=== PATIENT | female | born 1990 | race African-American/Black ===

== ENCOUNTER 2017-01-25 20:23 | Emergency (ER) | payer SELFPAY ==
[~2017-01-25] VITALS: Ht 157.5 cm; Wt 65.3 kg
[2017-01-25 20:26] VITALS: BP 109/68; PULSE 94; RESP 16; TEMP 98.6; O2SAT 100
--- NOTE | 2017-01-25 20:42 | PD ---
HPI Chief Complaint: Packer [employer] Carry Out Problem/Complaint Time Seen by Provider: 20:32 Travel History International Travel<30 days: No Contact w/Intl Traveler<30days: No Traveled to known affect area: No History of Present Illness HPI 26-year-old female complains of epigastric upper abdominal pain. Patient status post elective 2 weeks ago. Patient states that she stopped bleeding 1 week after the procedure. Patient started having low abdominal cramping for the past 3 days. Patient states the pain cramping pain localized to lower abdomen. Patient denies any pain radiation. Patient states that the pain has been intermittent. Patient states has been taking Naprosyn for pain. Patient denies any dysuria or frequency. Patient denies any vaginal discharge or bleeding. Patient denies any fever chills. Patient denies any back pain. Patient states that she has not been sexually active since the . PFSH Past Medical History ?: Unknown Social History Tobacco Use: No Allergies-Medications (Allergen,Severity, Reaction): Coded Allergies: No Known Allergies (Unverified , 01/25/17) Reported Meds & Prescriptions Reported Meds & Active Scripts Active Carafate (Sucralfate) 1 Gram Tab 1 Gm PO QID On empty stomach Protonix (Pantoprazole Sodium) 40 Mg Tab 40 Mg PO DAILY Flagyl (Metronidazole) 500 Mg Tab 2,000 Mg PO ONCE Reported Naproxen 500 Mg Tab 500 Mg PO BID Sprintec 28 (Norgestimate-Ethinyl Estradiol) 0.25-35 mg-Mcg Tab 1 Tab PO DAILY Review of Systems General / Constitutional: No: Fever Eyes: No: Visual changes HENT: No: Headaches Cardiovascular: No: Chest Pain or Discomfort Respiratory: No: Shortness of Breath Gastrointestinal: Positive: Abdominal Pain Genitourinary: No: Dysuria Musculoskeletal: No: Pain Skin: No Rash Neurologic: No: Weakness Psychiatric: No: Depression Endocrine: No: Polydipsia Hematologic/Lymphatic: No: Easy Bruising Physical Exam Narrative GENERAL: Well-nourished, well-developed patient. SKIN: Focused skin assessment warm/dry. HEAD: Normocephalic. EYES: No scleral icterus. No injection or drainage. NECK: Supple, trachea midline. No JVD or lymphadenopathy. CARDIOVASCULAR: Regular rate and rhythm without murmurs, gallops, or rubs. RESPIRATORY: Breath sounds equal bilaterally. No accessory muscle use. GASTROINTESTINAL: Abdomen soft, nondistended. Patient has mild tenderness on palpation epigastric area. No rebound tenderness. No mass. MUSCULOSKELETAL: No cyanosis, or edema. BACK: Nontender without obvious deformity. No CVA tenderness. 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 No cervical motion tenderness. Uterus is nonenlarged and nontender on palpation. No adnexal mass or tenderness. Data Data Last Documented VS Vital Signs Date Time Temp Pulse Resp B/P (MAP) Pulse Ox O2 Delivery O2 Flow Rate FiO2 01/25/17 22:26 84 16 110/68 (82) 100 01/25/17 20:26 98.6 Orders Orders Beta Hcg (Quant/Titer) (01/25/17 20:34) Complete Blood Count With Diff (01/25/17 20:34) Comprehensive Metabolic Panel (01/25/17 20:34) Gc And Chlamydia Pcr (01/25/17 20:34) Wet Prep Profile (01/25/17 20:34) Urinalysis - C+S If Indicated (01/25/17 20:34) Iv Access Insert/Monitor (01/25/17 20:34) Ed Urine Pregnancytest Poc (01/25/17 20:34) Al-Mag Hy-Si 40-40-4 Mg/Ml Liq (Mag-Al P (01/25/17 21:00) Pantoprazole (Protonix) (01/25/17 21:00) Hurhw-Flvewb-Bkhgff-Pb Liq ( Liq (01/25/17 21:00) Urine Culture (01/25/17 20:55) Ed Discharge Order (01/25/17 22:10) Labs Laboratory Tests Test 01/25/17 20:55 White Blood Count 10.7 TH/MM3 Red Blood Count 4.08 MIL/MM3 Hemoglobin 12.0 GM/DL Hematocrit 35.6 % Mean Corpuscular Volume 87.4 FL Mean Corpuscular Hemoglobin 29.5 PG Mean Corpuscular Hemoglobin Concent 33.8 % Red Cell Distribution Width 12.7 % Platelet Count 141 TH/MM3 Mean Platelet Volume 9.7 FL Neutrophils (%) (Auto) 79.3 % Lymphocytes (%) (Auto) 10.0 % Monocytes (%) (Auto) 6.9 % Eosinophils (%) (Auto) 0.9 % Basophils (%) (Auto) 2.9 % Neutrophils # (Auto) 8.5 TH/MM3 Lymphocytes # (Auto) 1.1 TH/MM3 Monocytes # (Auto) 0.7 TH/MM3 Eosinophils # (Auto) 0.1 TH/MM3 Basophils # (Auto) 0.3 TH/MM3 CBC Comment DIFF FINAL Differential Comment Urine Color SCOTT Urine Turbidity CLOUDY Urine pH 6.0 Urine Specific [place] 1.033 Urine Protein 30 mg/dL Urine Glucose (UA) NEG mg/dL Urine Ketones 15 mg/dL Urine Occult Blood TRACE Urine Nitrite NEG Urine Bilirubin NEG Urine Leukocyte Esterase MOD Urine RBC 3-5 /hpf Urine WBC 100-200 /hpf Urine Squamous Epithelial Cells 6-8 /hpf Urine Bacteria FEW /hpf Urine Trichomonas PRESENT Microscopic Urinalysis Comment CULTURE INDICATED Clue Cells (Wet Prep) NONE SEEN Vaginal Trichomonas (Wet Prep) PRESENT Vaginal Yeast (Wet Prep) NONE SEEN Blood Urea Nitrogen 10 MG/DL Creatinine 0.76 MG/DL Random Glucose 123 MG/DL Total Protein 7.6 GM/DL Albumin 3.4 GM/DL Calcium Level 8.1 MG/DL Alkaline Phosphatase 96 U/L Aspartate Amino Transf (AST/SGOT) 18 U/L Alanine Aminotransferase (ALT/SGPT) 22 U/L Total Bilirubin 0.5 MG/DL Sodium Level 136 MEQ/L Potassium Level 3.2 MEQ/L Chloride Level 104 MEQ/L Carbon Dioxide Level 25.3 MEQ/L Anion Gap 7 MEQ/L Estimat Glomerular Filtration Rate 112 ML/MIN Human Chorionic Gonadotropin, Quant 14 MIU/ML [facility] Medical Decision Making Medical Screen Exam Complete: Yes Emergency Medical Condition: Yes Interpretation(s) 22:04 PM. CBC within normal limit. Potassium 3.2. Beta hCG 14. UA positive for WBC and bacteria. Trichomonas positive. Differential Diagnosis Differential diagnosis including gastritis, PUD, pancreatitis, cholecystitis, colitis, UTI, pyelonephritis, nephrolithiasis, endometritis, retained products of conception. Narrative Course 26-year-old female epigastric abdominal cramping. Status post elective 2 weeks ago. Protonix 40 mg by mouth. Maalox 30 cc by mouth. 10 cc by mouth. Diagnosis Primary Impression: Gastritis Qualified Codes: K29.00 - Acute gastritis without bleeding Additional Impression: Trichomonas vaginitis Patient Instructions: General Instructions Additional Instructions: Take medication as directed. Follow-up with personal physician. Return if worse. Med/Other Pt SpecificInfo: Prescription(s) given Scripts Sucralfate (Carafate) 1 Gram Tab 1 GM PO QID for Ulcer Prevention, #120 TAB 0 Refills On empty stomach Prov: Bayron Gross MD 01/25/17 Pantoprazole (Protonix) 40 Mg Tab 40 MG PO DAILY for Reflux, #30 TAB 0 Refills Prov: Bayron Gross MD 01/25/17 Metronidazole (Flagyl) 500 Mg Tab 2000 MG PO ONCE for Infection, #4 TAB 0 Refills Prov: Bayron Gross MD 01/25/17 Disposition: 01 DISCHARGE HOME Condition: Stable Bayron Gross MD Jan 25, 2017 20:42
[2017-01-25] MEDS ORDERED: ALUMINUM/MAGNESIUM/SIMETH 30 ML CUP PO ONE (21:00)
[2017-01-25] MEDS ORDERED: ATROPINE/SCOPOLAM/HYOSCYAM/PB ELIXIR 10 ML CUP PO ONE (21:00)
[2017-01-25] MEDS ORDERED: PANTOPRAZOLE SOD 40 MG DELAYED RELEASE TAB PO ONE (21:00)
[2017-01-25 21:05] LABS: BLOOD, URINE TRACE (NEG); GLUCOSE,URINE NEG (NEG); KETONE, URINE 15 mg/dL (NEG); NITRITE,URINE NEG (NEG)
[2017-01-25] MEDS ORDERED: NAPR500T2 PO (21:05)
[2017-01-25] MEDS ORDERED: SPRI28TA PO (21:05)
[2017-01-25 21:06] LABS: AUTOMATED NEUTROPHIL # 8.5 TH/MM3 (1.8-7.7); BASOPHIL # 0.3 TH/MM3 (0-0.2); BASOPHIL % 2.9 % (0.0-2.0); EOSINOPHIL # 0.1 TH/MM3 (0-0.4); EOSINOPHIL % 0.9 % (0.0-4.0); HEMATOCRIT 35.6 % (35.0-46.0); HEMO FLAGS DIFF FINAL; LYMPHOCYTE # 1.1 TH/MM3 (1.0-4.8); MEAN CELL VOLUME 87.4 FL (80.0-100.0); MEAN CORPUSCULAR HEMOGLOBIN 29.5 PG (27.0-34.0); MEAN CORPUSCULAR HGB CONC 33.8 % (32.0-36.0); MONO % 6.9 % (0.0-8.0); NEUT % 79.3 % (16.0-70.0); PLATELET COUNT 141 TH/MM3 (150-450); RED BLOOD COUNT 4.08 MIL/MM3 (4.00-5.30); RED CELL DISTRIBUTION WIDTH 12.7 % (11.6-17.2); URINE COLOR AMBER (YELLW/STRAW); WHITE BLOOD COUNT 10.7 TH/MM3 (4.0-11.0)
[2017-01-25 21:10] LABS: BACTERIA, URINE FEW /hpf; COMMENT (UR) CULTURE INDICATED; CULTURE IF INDICATED CULTURE INDICATED; WBC, URINE 100-200 /hpf (0-5)
[2017-01-25 21:12] LABS: CHLORIDE 104 MEQ/L (98-107); POTASSIUM 3.2 MEQ/L (3.5-5.1); SODIUM (NA) 136 MEQ/L (136-145)
[2017-01-25 21:16] LABS: ANION GAP 7 MEQ/L (5-15); BICARBONATE 25.3 MEQ/L (21.0-32.0); BLOOD UREA NITROGEN 10 MG/DL (7-18)
[2017-01-25 21:19] LABS: ALT (GPT) 22 U/L (10-53); AST (GOT) 18 U/L (15-37); GLOMERULAR FILTRATION RATE 112 ML/MIN (>89)
[2017-01-25 21:20] LABS: TOTAL BILIRUBIN ADULT 0.5 MG/DL (0.2-1.0)
[2017-01-25 21:22] LABS: ALKALINE PHOSPHATASE 96 U/L (45-117)
[2017-01-25 21:24] LABS: BETA HCG QUANT 14 MIU/ML (0-5)
[2017-01-25] MEDS ORDERED: CARA1TAB6 PO (22:09)
[2017-01-25] MEDS ORDERED: METR-1 PO (22:09)
[2017-01-25] MEDS ORDERED: PROT40TA PO (22:09)
[2017-01-25 22:26] VITALS: BP 110/68
[2017-01-26 14:44] LABS: CHLAMYDIA PCR NOT DETECTED (NOT DETECT); NEISSERIA PCR NOT DETECTED (NOT DETECT)
== END 2017-01-25 22:28 | disposition home or self-care (01) ==
LOC: PHED 20:23
DX: K29.00 Acute gastritis without bleeding (principal); A59.01 Trichomonal vulvovaginitis; Z98.890 Other specified postprocedural states
CPT/HCPCS: 80053; 81001; 84702; 84703; 85025; 87086; 87210; 87491; 87591; 99284

== ENCOUNTER 2017-01-28 15:29 | Emergency (ER) | payer SELFPAY ==
[~2017-01-28 15:29] MED LIST: CARA1TAB6 PO; METR-1 PO; NAPR500T2 PO; PROT40TA PO; SPRI28TA PO
[2017-01-28 15:42] VITALS: BP 98/64; PULSE 95; RESP 20; TEMP 98.5; O2SAT 99
[2017-01-28] MEDS ORDERED: SODIUM CHLOR 0.9% 1000 ML INJ 1,000 ML IV SCH (16:20)
[2017-01-28] MEDS ORDERED: TOPA50TA7 PO (16:24)
--- NOTE | 2017-01-28 16:24 | PD ---
HPI Chief Complaint: Headache Time Seen by Provider: 16:16 Travel History International Travel<30 days: No Contact w/Intl Traveler<30days: No Traveled to known affect area: No History of Present Illness HPI 26-year-old female with history of migraine headaches, here for evaluation of a headache. The patient reports that she has had a constant headache for the last 4 days which she describes as 10 out of 10 and feels as though someone is hitting her in the head with a hammer. She was seen at [facility] 2 months ago for a similar headache and was prescribed Topamax, however she did not start taking it until 4 days ago. She has never seen a neurologist for this pain. She describes nausea last night with one episode of vomiting. No neck pain or stiffness. No fevers or chills. No photophobia. She has had similar headaches in the past. PFSH Past Medical History Diminished Hearing: No Musculoskeletal: Yes (SCOLIOSIS) Migraines: Yes Influenza Vaccination: No ?: Not LMP: . HCG WAS NEG WHEN HERE 2 DAYS AGO. : 1 : 1 Social History Alcohol Use: Yes ("RARELY, SPECIAL OCCASIONS" STATED 01/25/17) Tobacco Use: No Substance Use: No Allergies-Medications (Allergen,Severity, Reaction): Coded Allergies: No Known Allergies (Unverified , 01/28/17) Reported Meds & Prescriptions Reported Meds & Active Scripts Active Carafate (Sucralfate) 1 Gram Tab 1 Gm PO QID On empty stomach Protonix (Pantoprazole Sodium) 40 Mg Tab 40 Mg PO DAILY Flagyl (Metronidazole) 500 Mg Tab 2,000 Mg PO ONCE Reported Topamax (Topiramate) 50 Mg Tab 50 Mg PO BID Naproxen 500 Mg Tab 500 Mg PO BID Review of Systems Except as stated in HPI: all other systems reviewed are Neg Physical Exam Narrative GENERAL: Well-developed, well-nourished, overall very comfortable appearing, no apparent distress. SKIN: Focused skin assessment warm/dry. HEAD: Atraumatic. Normocephalic. EYES: Pupils equal, round, reactive to light, 3 mm. EOMI. No scleral icterus. No injection or drainage. ENT: No nasal bleeding or discharge. Mucous membranes pink and moist. NECK: Trachea midline. No JVD. No nuchal rigidity. CARDIOVASCULAR: Regular rate and rhythm. RESPIRATORY: No accessory muscle use. Clear to auscultation. Breath sounds equal bilaterally. GASTROINTESTINAL: Abdomen soft, non-tender, nondistended. MUSCULOSKELETAL: No obvious deformities. No clubbing. No cyanosis. No edema. NEUROLOGICAL: Awake and alert. No obvious cranial nerve deficits. Motor grossly within normal limits. Normal speech. PSYCHIATRIC: Appropriate mood and affect; insight and judgment normal. Data Data Last Documented VS Vital Signs Date Time Temp Pulse Resp B/P (MAP) Pulse Ox O2 Delivery O2 Flow Rate FiO2 01/28/17 17:04 18 01/28/17 16:37 88 119/71 (87) 99 Room Air 01/28/17 15:42 98.5 Orders Orders Beta Hcg (Quant/Titer) (01/28/17 16:20) Complete Blood Count With Diff (01/28/17 16:20) Comprehensive Metabolic Panel (01/28/17 16:20) Prothrombin Time / Inr (Pt) (01/28/17 16:20) Act Partial Throm Time (Ptt) (01/28/17 16:20) Iv Access Insert/Monitor (01/28/17 16:20) Ecg Monitoring (01/28/17 16:20) Oximetry (01/28/17 16:20) Sodium Chlor 0.9% 1000 Ml Inj (Ns 1000 M (01/28/17 16:20) Sodium Chloride 0.9% Flush (Ns Flush) (01/28/17 16:30) Metoclopramide Inj (Reglan Inj) (01/28/17 16:30) Ketorolac Inj (Toradol Inj) (01/28/17 16:30) Labs Laboratory Tests Test 01/28/17 16:28 White Blood Count 14.5 TH/MM3 Red Blood Count 3.83 MIL/MM3 Hemoglobin 11.1 GM/DL Hematocrit 34.3 % Mean Corpuscular Volume 89.5 FL Mean Corpuscular Hemoglobin 28.9 PG Mean Corpuscular Hemoglobin Concent 32.3 % Red Cell Distribution Width 13.1 % Platelet Count 229 TH/MM3 Mean Platelet Volume 9.4 FL Neutrophils (%) (Auto) 86.3 % Lymphocytes (%) (Auto) 6.8 % Monocytes (%) (Auto) 6.4 % Eosinophils (%) (Auto) 0.3 % Basophils (%) (Auto) 0.2 % Neutrophils # (Auto) 12.6 TH/MM3 Lymphocytes # (Auto) 1.0 TH/MM3 Monocytes # (Auto) 0.9 TH/MM3 Eosinophils # (Auto) 0.0 TH/MM3 Basophils # (Auto) 0.0 TH/MM3 CBC Comment DIFF FINAL Differential Comment Prothrombin Time 10.7 SEC Prothromb Time International Ratio 1.1 RATIO Activated Partial Thromboplast Time 28.3 SEC Blood Urea Nitrogen 7 MG/DL Creatinine 0.83 MG/DL Random Glucose 96 MG/DL Total Protein 7.4 GM/DL Albumin 2.9 GM/DL Calcium Level 8.5 MG/DL Alkaline Phosphatase 110 U/L Aspartate Amino Transf (AST/SGOT) 13 U/L Alanine Aminotransferase (ALT/SGPT) 20 U/L Total Bilirubin 0.3 MG/DL Sodium Level 137 MEQ/L Potassium Level 3.7 MEQ/L Chloride Level 106 MEQ/L Carbon Dioxide Level 20.5 MEQ/L Anion Gap 11 MEQ/L Estimat Glomerular Filtration Rate 101 ML/MIN Human Chorionic Gonadotropin, Quant 6 MIU/ML [facility] Medical Decision Making Medical Screen Exam Complete: Yes Emergency Medical Condition: Yes Differential Diagnosis Migraine headache, tension headache, cluster headache, SAH/meningitis/ encephalitis unlikely Narrative Course Vital signs reviewed. CBC: WBC 14.5, hemoglobin 11.1, hematocrit 34.3, platelets 229. Leukocytosis is nonspecific. 3 days ago was normal. CMP is unremarkable. Beta hCG is 6. 3 days ago was 14. Patient was given a liter of IV fluids, IV Toradol, and IV Reglan. On reassessment she states that her headache is completely resolved. This is likely a migraine headache. She has had similar headaches in the past. She recently started taking Topamax, and I have encouraged her to continue this medication. She is stable for discharge home with further outpatient follow-up with a primary care physician this week. She was informed on when to return to the emergency department. She verbalizes understanding and agreement with plan. Diagnosis Primary Impression: Headache Qualified Codes: R51 - Headache Referrals: [facility] 3 days Primary Care Physician 3 days Additional Instructions: Follow-up with a primary care physician this week. Return to the emergency department for worsening symptoms or any other concerns. Disposition: 01 DISCHARGE HOME Condition: Stable Aníbal Jerez MD Jan 28, 2017 16:24
[2017-01-28] MEDS ORDERED: METOCLOPRAMIDE HCL 10 MG/2 ML VIAL IV PUSH ONE (16:30)
[2017-01-28] MEDS ORDERED: SODIUM CHLORIDE 0.9% FLUSH 10 ML FLUSH IV FLUSH PRN (16:30)
[2017-01-28] MEDS ORDERED: KETOROLAC TROMETHAMINE 30 MG/ML (IVP) VIAL IV PUSH ONE (16:30)
[2017-01-28 16:37] VITALS: BP 119/71; PULSE 88; RESP 18; O2SAT 99
[2017-01-28 16:42] LABS: CHLORIDE 106 MEQ/L (98-107); POTASSIUM 3.7 MEQ/L (3.5-5.1); SODIUM (NA) 137 MEQ/L (136-145)
[2017-01-28 16:45] LABS: AUTOMATED NEUTROPHIL # 12.6 TH/MM3 (1.8-7.7); BASOPHIL % 0.2 % (0.0-2.0); EOSINOPHIL % 0.3 % (0.0-4.0); HEMATOCRIT 34.3 % (35.0-46.0); LYMPH % 6.8 % (9.0-44.0); MEAN CELL VOLUME 89.5 FL (80.0-100.0); MEAN CORPUSCULAR HEMOGLOBIN 28.9 PG (27.0-34.0); MEAN CORPUSCULAR HGB CONC 32.3 % (32.0-36.0); MONO % 6.4 % (0.0-8.0); NEUT % 86.3 % (16.0-70.0); PLATELET COUNT 229 TH/MM3 (150-450); RED BLOOD COUNT 3.83 MIL/MM3 (4.00-5.30); RED CELL DISTRIBUTION WIDTH 13.1 % (11.6-17.2); WHITE BLOOD COUNT 14.5 TH/MM3 (4.0-11.0)
[2017-01-28 16:46] LABS: ANION GAP 11 MEQ/L (5-15); BICARBONATE 20.5 MEQ/L (21.0-32.0); BLOOD UREA NITROGEN 7 MG/DL (7-18)
[2017-01-28 16:47] LABS: APTT (PATIENT) 28.3 SEC (24.3-30.1); INTERNATIONAL NORMALIZED RATIO 1.1 RATIO; PROTHROMBIN TIME - PATIENT 10.7 SEC (9.8-11.6)
[2017-01-28 16:49] LABS: ALT (GPT) 20 U/L (10-53); AST (GOT) 13 U/L (15-37); GLOMERULAR FILTRATION RATE 101 ML/MIN (>89); HEMO FLAGS DIFF FINAL
[2017-01-28 16:50] LABS: TOTAL BILIRUBIN ADULT 0.3 MG/DL (0.2-1.0)
[2017-01-28 16:52] LABS: ALKALINE PHOSPHATASE 110 U/L (45-117)
[2017-01-28 16:54] LABS: BETA HCG QUANT 6 MIU/ML (0-5)
[2017-01-28 17:04] VITALS: RESP 18
== END 2017-01-28 17:20 | disposition home or self-care (01) ==
LOC: PHED 15:29
DX: R51 Headache (principal); R11.2 Nausea with vomiting, unspecified
CPT/HCPCS: 80053; 84702; 85025; 85610; 85730; 96361; 96374; 96375; 99284; J1885; J2765; J7030